=== PATIENT | female | born 1975 | race American Indian/Alaskan Native ===

== ENCOUNTER 2018-06-09 17:29 | Emergency (ER) | payer OTHER ==
[2018-06-09] MEDS ORDERED: ZOFRAN ODT PO ONE (17:37)
[2018-06-09 17:42] VITALS: BP 150/90
--- NOTE | 2018-06-09 17:49 | Emergency Department Report ---
Blank Doc - Documentation Documentation: N/V and lower abdominal pain no diarrhea or fever
[2018-06-09 18:09] LABS: Basophils % (Auto) 0.8 % (0.0-1.8); Eosinophils # (Auto) 0.2 K/mm3 (0.0-0.4); Hematocrit 37.4 % (30.3-42.9); Hemoglobin 12.2 gm/dl (10.1-14.3); Lymphocytes # (Auto) 1.9 K/mm3 (1.2-5.4); Lymphocytes % (Auto) 32.1 % (13.4-35.0); Mean Corpuscular HGB Conc 33 % (30-34); Mean Corpuscular Volume 94 fl (79-97); Monocytes # (Auto) 0.5 K/mm3 (0.0-0.8); Monocytes % (Auto) 8.4 % (0.0-7.3); Platelet Count 466 K/mm3 (140-440); Red Blood Count 3.99 M/mm3 (3.65-5.03); Red Cell Distribution Width 13.9 % (13.2-15.2)
[2018-06-09 18:32] LABS: Alanine Aminotransferase 10 units/L (7-56); Albumin 4.3 g/dL (3.9-5); BUN/Creatinine Ratio 14; Blood Urea Nitrogen 7 mg/dL (7-17); Calcium 8.7 mg/dL (8.4-10.2); Hemolysis Index 4
[2018-06-09 19:48] LABS: Bilirubin,Urine NEG (Negative); Blood,Urine NEG (Negative); Color,Urine Yellow (Yellow); Mucus,Urine 2+ /HPF
[2018-06-09 19:54] LABS: HCG Qualitative,Urine Negative (Negative)
--- NOTE | 2018-06-09 21:41 | Emergency Department Report ---
Vomiting/Diarrhea - HPI Chief Complaint: Nausea/Vomiting/Diarrhea Stated Complaint: VOMITING Time Seen by Provider: 06/09/18 17:37 Duration: 3 Days Severity: moderate Nausea/Vomiting Severity: Moderate Diarrhea Severity: None Pain Severity: None Symptoms: No Watery Diarrhea, No Bloody diarrhea, No Fever, No Able to Tolerate Fluids, No Recent Unusual Foods, No Recent Untreated Water, No Recent use of Antibiotics, No Family w/ Similar Symptoms, No Contacts w/ Similar Symptoms, No Rash, No Hematuria, No Recent URI Symptoms Other History: 42 year old -[place] female presents to the emergency room for vomiting since Friday evening. Patient denies any diarrhea denies abdominal pain does complain of back ache and states she has been eaten something bad. Patient was given Zofran in triage which she reports makes her feel much better she's been able to drink a little of her Sprite. Patient reports no past medical history except ectopic with a left tube removal. Patient takes no medications on a daily basis has no known drug allergies does admit to smoking and cigarettes as well as weed. ED Review of Systems ROS: Stated complaint: VOMITING Other details as noted in HPI Comment: All other systems reviewed and negative Constitutional: denies: chills, fever Gastrointestinal: nausea, vomiting. denies: abdominal pain, diarrhea, constipation ED Past Medical Hx - Past Medical History Previous Medical History?: No - Surgical History Past Surgical History?: No - Social History Smoking Status: Current Every Day Smoker Substance Use Type: None - Medications Home Medications: Home Medications Medication Instructions Recorded Confirmed Last Taken Type Ondansetron [Zofran Odt] 4 mg PO Q8HR #9 tab.rapdis 06/09/18 Unknown Rx Vomiting Diarrhea Exam - Exam General: Vital signs noted. No distress. Alert and acting appropriately. HEENT: Yes Moist Mucous Membranes, No Pharyngeal Erythema, No Pharyngeal Exudates, No Rhinorrhea, No Conjuctival Injection, No Frontal Tenderness, No Maxillary Tenderness Neck: No Adenopathy, No Rigidity Lungs: Yes Clear Lung Sounds, Yes Good Air Exchange, No Wheezes, No Stridor, No Cough, No Nasal Flaring, No Retractions, No Use of Accessory Muscles Heart exam: Regular: Yes, Murmur: No, Tachycardia: No Abdomen: Tenderness: No, Peritoneal Signs: No, Distention: No, Hyperactive Bowel sounds: No Skin exam: Rash: No, Edema: No, Normal turgor: Yes Neurologic: Alert and oriented, no deficits. Musculoskeletal: Unremarkable. ED Course Vital Signs 06/09/18 17:33 Temperature 97.7 F Pulse Rate 56 L Respiratory 14 Rate Blood Pressure 150/90 [Right] O2 Sat by Pulse 98 Oximetry ED Medical Decision Making - Lab Data Result diagrams: 06/09/18 17:52 06/09/18 17:52 - Medical Decision Making Patient has been evaluated by this provider in fast track. Patient reports that she feels much better after having Zofran in triage. Patient was started on a by mouth challenge. Patient will be discharged home with Zofran and instructions to increase her fluid intake and advance her diet as tolerated. I also discussed with patient that smoking cannabis can cause nausea and vomiting. Patient verbalized understanding. Critical care attestation.: If time is entered above; I have spent that time in minutes in the direct care of this critically ill patient, excluding procedure time. ED Disposition Clinical Impression: Nausea & vomiting Qualifiers: Vomiting type: unspecified Vomiting Intractability: intractable Qualified Code(s): R11.2 - Nausea with vomiting, unspecified Disposition: DC-01 TO HOME OR SELFCARE Is pt being admited?: No Does the pt Need Aspirin: No Condition: Stable Instructions: Acute Nausea and Vomiting (ED) Additional Instructions: Please increase her fluid intake advance her diet as tolerated. Take Zofran as needed for nausea and vomiting. If his symptoms persist or gets worse to follow up with her primary care provider. Prescriptions: Ondansetron [Zofran Odt] 4 mg PO Q8HR #9 tab.teresadis Referrals: EDWARD MARTINEZ MD [Primary Care Provider] - 3-5 Days Forms: Accompanied Note, Work/School Release Form(ED)
== END 2018-06-09 21:45 | disposition home or self-care (01) ==
LOC: ED 17:29
DX: R11.2 Nausea with vomiting, unspecified (principal); R10.9 Unspecified abdominal pain; M54.9 Dorsalgia, unspecified; F17.200 Nicotine dependence, unspecified, uncomplicated
CPT/HCPCS: 36415; 80053; 81001; 81025; 83690; 85025; Q0162

== ENCOUNTER 2019-12-03 00:38 | Emergency (ER) | payer SELFPAY ==
[2019-12-03 00:55] VITALS: BP 153/89
== END 2019-12-03 03:13 ==
LOC: ED 00:38
DX: R21 Rash and other nonspecific skin eruption (principal); Z53.21 Procedure and treatment not carried out due to patient leaving prior to being seen by health care provider